=== PATIENT | male | born 1950 | race Caucasian/White ===

== ENCOUNTER 2018-07-19 11:47 | Inpatient (IN) | payer OTHER ==
[~2018-07-19] VITALS: Ht 172.7 cm; Wt 76.1 kg
[~2018-07-19 11:47] MED LIST: ? B/P MED; ALBUTEROL; ALBUTEROL2.5 MG/31 INH; ALEVE220 MG PO; AMARYL2 MG PO; ANORO ELLIPTA1 EACH INH; ASPIR 8181 MG PO; ATENOLOL 25 MG25 M1 PO; ATORVASTATIN CA40 MG PO; AUGMENTIN 875-1 EACH PO; CARVEDILOL12.5 MG PO; COD LIVER OIL1 EAC4 PO; COLACE100 MG PO; COREG6.25 MG PO; COZAAR 25 MG TA25 M2 PO; GLUCOPHAGE XR750 MG PO; GLUCOSAMINE HC500 MG PO; HYDROCODONE-AP1 EA11 PO; HYDROCODONE-AP1 EAC6 PO; HYZAAR 50-12.51 TAB; IBUPROFEN; IBUPROFEN 600600 M1 PO; LOSARTAN; LOSARTAN-HCTZ1 EAC1 PO; MECLIZINE HCL12.5 MG PO; METFORMIN; METFORMIN HYDR100 GM PO; METHOTREXATE PO; NITROGLYCERIN0.4 MG SUBLING; NITROSTAT0.4 M1 SL; ORTHO TOP; OXYGEN INH; PERCOCET 5-3251 EACH PO; PLAVIX 75 MG TA75 M1 PO; POTASSIUM PO; PREDNISONE 10 M10 MG PO; PREDNISONE 5 MG5 M1 PO; PROAIR HFA8.5 GM; RELAFEN750 MG PO; SPIRIVA INH; SYMBICORT160 MCG/4. INH; ZOFRAN4 MG PO
[2018-07-19 11:55] VITALS: BP 162/83
[2018-07-19 12:05] LABS: HEMATOCRIT 39.3 % (42.0-52.0); HEMOGLOBIN 12.6 gm/dL (14.0-18.0); MCH 28.7 pg (26.0-34.0); MCV 89.7 fL (80.0-100.0); MPV 6.8 fl. (7.2-11.1); NUCLEATED RBCS 0 /100WBC; PLATELET COUNT* 277 thou/uL (150-400); RBC 4.39 mil/uL (4.50-6.00); RDW-CV 16.4 % (10.5-14.5); WBC 9.4 thou/uL (4.0-11.0)
[2018-07-19 12:13] LABS: ANION GAP 8 mmol/L (7-16); APTT 28.7 Seconds (25.0-31.3); BUN 20 mg/dL (7-18); CHLORIDE 104 mmol/L (98-107); CO2 27 mmol/L (21-32); CREATININE 1.2 mg/dL (0.6-1.3); GLUCOSE 215 mg/dL (70-99); POTASSIUM 4.8 mmol/L (3.5-5.1); PROTIME 10.4 Seconds (9.20-11.50); SODIUM 139 mmol/L (136-145)
[2018-07-19 12:23] LABS: ALBUMIN 2.9 g/dL (3.4-5.0); ALKALINE PHOSPHATASE 66 U/L (46-116); LIPASE 236 U/L (73-393); NT-PRO BRAIN NAT PEPTIDE 1929 pg/mL (<300); SGOT 34 U/L (15-37); SGPT 46 U/L (30-65); TOTAL BILIRUBIN 0.3 mg/dL (<0.1-1.0); TOTAL PROTEIN 7.4 g/dL (6.4-8.2); TROPONIN-I LEVEL <0.06 ng/mL (<0.06)
[2018-07-19 12:30] LABS: MAGNESIUM 0.9 mg/dL (1.8-2.4)
[2018-07-19 12:38] LABS: BE -0.1 mmol/L (-2 to +3); HCO3 26.5 mmol/L (22.0-26.0); PO2 108.1 mmHg (75.0-100.0); pH 7.332 (7.340-7.450)
[2018-07-19 12:41] LABS: PCO2 51.1 mmHg (35.0-45.0)
[2018-07-19 12:57] LABS: ABSOLUTE EOSINOPHILS 0.8 thou/uL (0.0-0.7); ABSOLUTE LYMPHOCYTES 1.3 thou/uL (0.8-5.3); ABSOLUTE MONOCYTES 0.1 thou/uL (0.0-1.2); ABSOLUTE NEUTROPHILS 7.2 thou/uL (1.6-8.1); PLATELET ESTIMATE ADEQUATE
[2018-07-19 12:58] LABS: ANISOCYTOSIS 1+; POIKILOCYTOSIS 1+
[2018-07-19 14:37] VITALS: BP 140/83
--- NOTE | 2018-07-19 17:37 | 2DMMODE ---
[place] [address] 2 D/M-MODE ECHOCARDIOGRAM Name: DEYA WOOD Room: [address] IN [facility]#: [id number] Admission: 07/19/18 Attend Phys: Galen Parikh, Discharge: Date of : 46 Date of Service: 07/19/18 1737 Report #: [id number] THIS REPORT FOR: //name// APPROVED REPORT Study performed: 07/19/2018 15:43:51 EXAM: Comprehensive 2D, Doppler, and color-flow Echocardiogram Patient Location: In-Patient Room #: [facility] Status: routine BSA: 1.92 HR: 98 bpm BP: 140/83 mmHg Rhythm: NSR Other Information Study Quality: Fair Indications Dyspnea 2D Dimensions IVSd: 10.10 (7-11mm) LVOT Diam: 19.91 (18-24mm) LVDd: 57.02 mm PWd: 8.74 (7-11mm) Ascending Ao: 32.30 (22-36mm) LVDs: 44.88 (25-40mm) Aortic Root: 30.77 mm Volumes Left Atrial Volume (Systole) LA ESV Index: 23.00 mL/m2 Aortic Valve AoV Peak Casey.: 1.44 m/s AO Peak Gr.: 8.25 mmHg LVOT Max P.55 mmHg AO Mean Gr.: 4.48 mmHg LVOT Mean P.42 mmHg LVOT Max V: 1.07 m/s AO V2 VTI: 23.37 cm LVOT Mean V: 0.72 m/s SHALOM (VTI): 2.65 cm2 LVOT V1 VTI: 19.90 cm Mitral Valve E/A Ratio: 0.72 MV Decel. Time: 138.00 ms MV E Max Casey.: 1.01 m/[place] [address] 2 D/M-MODE ECHOCARDIOGRAM Name: DEYA WOOD Room: [address] IN .R.#: [id number] Admission: 07/19/18 Attend Phys: Galen Parikh, Discharge: Date of : 46 Date of Service: 07/19/18 1737 Report #: [id number] MV PHT: 40.02 ms MVA (PHT): 5.50 cm2 TDI E/Lateral E': 10.10 E/Medial E': 12.63 Medial E' Casey.: 0.08 m/s Lateral E' Casey.: 0.10 m/s Pulmonary Valve PV Peak Csaey.: 0.94 m/s PV Peak Gr.: 3.54 mmHg Tricuspid Valve RAP Estimate: 5.00 mmHg TR Peak Gr.: 33.47 mmHg RVSP: 38.00 mmHg PA Pressure: 38.00 mmHg Left Ventricle The left ventricle is normal size. Regional wall motion abnormalities are noted. akinesis noted of the mid and distal anteroapical wall and septum There is normal left ventricular wall thickness. Left ventricular systolic function is mild to moderately decreased. LVEF is 30-35%. Grade I - abnormal relaxation pattern. Right Ventricle The right ventricle is normal size. The right ventricular systolic function is normal. Atria The left atrium size is normal. The right atrium size is normal. Aortic Valve The aortic valve is normal in structure. No aortic regurgitation is present. There is no aortic valvular stenosis. Mitral Valve The mitral valve is normal in structure. There is no mitral valve regurgitation noted. No evidence of mitral valve stenosis. Tricuspid Valve The tricuspid valve is normal in structure. Trace tricuspid regurgitation. estimated pa pressure 40 mm hg Pulmonic Valve The pulmonary valve is normal in structure. There is no pulmonic [place] [address] 2 D/M-MODE ECHOCARDIOGRAM Name: DEYA WOOD Room: [address] IN [facility]#: [id number] Admission: 07/19/18 Attend Phys: Galen Parikh, Discharge: Date of : 46 Date of Service: 07/19/18 1737 Report #: [id number] Great Vessels The aortic root is normal in size. IVC is normal in size and collapses >50% with inspiration. Pericardium There is no pericardial effusion. <Conclusion> LVEF is 30-35%. Regional wall motion abnormalities are noted. akinesis noted of the mid and distal anteroapical wall and septum <ELECTRONICALLY SIGNED> By: Maninder Sanchez MD, FACC 07/19/18 [phone] Maninder Sanchez MD, FACC /INF
--- NOTE | 2018-07-19 17:58 | EKG ---
[place] [address] ELECTROCARDIOGRAM REPORT Name: DEYA WOOD Room: [address] ADM IN .R.#: [id number] Admission: 07/19/18 Attend Phys: Galen Parikh MD Discharge: Date of : 46 Report #: [id number] THIS REPORT FOR: //name// 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1950 Requested By: Trent Fishman Order Number: [id number] MD: Maninder Sanchez Measurements Intervals [place] Rate: 125 P: 68 VA: 152 QRS: -74 QRSD: 100 T: 79 QT: 287 QTc: 414 Interpretive Statements Sinus tachycardia Ventricular trigeminy old inferior infarction poor r wave progression Baseline wander in lead(s) I,II,III,aVR,aVL,aVF,V1,V2,V3,V4,V5,V6 Compared to ECG 03/21/2017 07:29:43 Ventricular premature complex(es) now present Sinus rhythm no longer present Myocardial infarct finding still present Electronically Signed On 07-19-2018 17:58:11 CDT by Maninder Sanchez [email or web address] <ELECTRONICALLY SIGNED> By: Maninder Sanchez MD, [facility] 07/19/18 1758 1153 [id number] Maninder Sanchez MD, [facility] /EPI
--- NOTE | 2018-07-19 17:59 | EKG ---
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1950 Requested By: Trent Fishman Order Number: [id number] MD: Maninder Sanchez Measurements Intervals [place] Rate: 98 P: 53 IA: 153 QRS: -67 QRSD: 96 T: 61 QT: 325 QTc: 415 Interpretive Statements Sinus rhythm Abnormal R-wave progression, early transition Inferior infarct, old Consider anterior infarct Electronically Signed On 07-19-2018 17:59:07 CDT by Maninder Sanchez [email or web address] <ELECTRONICALLY SIGNED> By: Maninder Sanchez MD, [facility] 07/19/18 1759 1300 1300 Manidner Sanchez MD, FACC /EPI
[2018-07-19 19:55] VITALS: BP 160/75
[2018-07-20] VITALS: BP 131/65
[2018-07-20 04:00] VITALS: BP 119/73
[2018-07-20 05:36] LABS: ABSOLUTE LYMPHOCYTES 0.6 thou/uL (0.8-5.3); ABSOLUTE MONOCYTES 0.1 thou/uL (0.0-1.2); ABSOLUTE NEUTROPHILS 9.1 thou/uL (1.6-8.1); BASOPHILS 0.1 %; HEMATOCRIT 30.9 % (42.0-52.0); LYMPHOCYTES 6.2 %; MCH 29.1 pg (26.0-34.0); MCHC 32.3 g/dL (28.0-37.0); MONOCYTES 1.1 %; MPV 7.3 fl. (7.2-11.1); NUCLEATED RBCS 0 /100WBC; PLATELET COUNT* 218 thou/uL (150-400); POLYS 92.6 %; RBC 3.43 mil/uL (4.50-6.00); RDW-CV 16.1 % (10.5-14.5); WBC 9.9 thou/uL (4.0-11.0)
[2018-07-20 06:01] LABS: ANION GAP 5 mmol/L (7-16); BUN 26 mg/dL (7-18); CHLORIDE 107 mmol/L (98-107); CO2 27 mmol/L (21-32); CREATININE 1.3 mg/dL (0.6-1.3); GLUCOSE 208 mg/dL (70-99); NT-PRO BRAIN NAT PEPTIDE 4421 pg/mL (<300); POTASSIUM 5.6 mmol/L (3.5-5.1); SODIUM 139 mmol/L (136-145); TROPONIN-I LEVEL <0.06 ng/mL (<0.06)
[2018-07-20 08:00] VITALS: BP 132/76
[2018-07-20 13:01] VITALS: BP 131/74
[2018-07-20 16:45] VITALS: BP 132/77
[2018-07-20 20:10] VITALS: BP 138/75
[2018-07-21] VITALS: BP 120/72
[2018-07-21 04:00] VITALS: BP 122/71
[2018-07-21 08:00] VITALS: BP 138/79; BP 146/78
[2018-07-21 11:19] VITALS: BP 122/75
[2018-07-21 11:28] LABS: ABSOLUTE LYMPHOCYTES 0.5 thou/uL (0.8-5.3); ABSOLUTE MONOCYTES 0.2 thou/uL (0.0-1.2); ABSOLUTE NEUTROPHILS 13.8 thou/uL (1.6-8.1); BASOPHILS 0.2 %; HEMATOCRIT 32.6 % (42.0-52.0); HEMOGLOBIN 10.7 gm/dL (14.0-18.0); LYMPHOCYTES 3.2 %; MCH 29.2 pg (26.0-34.0); MCHC 32.7 g/dL (28.0-37.0); MCV 89.3 fL (80.0-100.0); MONOCYTES 1.5 %; MPV 7.1 fl. (7.2-11.1); NUCLEATED RBCS 0 /100WBC; PLATELET COUNT* 256 thou/uL (150-400); POLYS 95.1 %; RBC 3.65 mil/uL (4.50-6.00); RDW-CV 16.5 % (10.5-14.5); WBC 14.5 thou/uL (4.0-11.0)
[2018-07-21 12:07] LABS: ALBUMIN 2.5 g/dL (3.4-5.0); CREATININE 1.1 mg/dL (0.6-1.3); POTASSIUM 5.2 mmol/L (3.5-5.1); TOTAL BILIRUBIN 0.3 mg/dL (<0.1-1.0); TOTAL PROTEIN 6.5 g/dL (6.4-8.2)
[2018-07-21 14:00] VITALS: BP 144/86
--- NOTE | 2018-07-26 09:11 | CON ---
[address] [address] CONSULTATION Name: DEYA WOOD Room: [address] IN .R.#: [id number] Admission: 07/19/18 Attend Phys: Galen Parikh MD Discharge: 07/21/18 Date of : 46 Report #: [id number] THIS REPORT FOR: //name// CC: Galen Euceda DATE OF SERVICE: 07/19/2018 REQUESTING PHYSICIAN: Galen Parikh MD. PRIMARY CARE PHYSICIAN: Faiza Euceda DO. CHIEF COMPLAINT: Shortness of breath. HISTORY OF PRESENT ILLNESS: The patient is a 67-year-old male with a history of both oxygen requiring COPD and congestive heart failure with mild LV dysfunction. He presented to the hospital Emergency Room today with increasing shortness of breath over the last few days. He was getting ready to go to work. He took a breathing treatment as he felt more short of breath than usual even on his 2 liters of oxygen which he chronically uses. His symptoms did not improve. He went to the Emergency Room. His ECG showed a sinus rhythm with conduction delay, but no acute ST segment abnormalities. He is ruled out for an acute UT. His troponin is normal. We were asked to see him because he does have a history of coronary artery disease, congestive heart failure and his BNP was elevated at 4421. Yesterday, it was 1929. He has been receiving IV fluids, though. PAST MEDICAL HISTORY: He has a history of coronary disease. Dr. Sanchez put a drug-eluting stent in his right coronary artery. He has an ejection fraction of 45% on an echo this year. This was 03/2018. He has oxygen-requiring COPD, hypertension, diabetes mellitus, mild obesity, hyperlipidemia, hypertension, Parkinson's disease, chronic low back pain, remote CVA. PAST SURGICAL HISTORY: Hip surgery 2017, foot surgery. FAMILY HISTORY: Positive for heart attack maternally. HOME MEDICATIONS: Include albuterol/Atrovent. He takes prednisone 5 mg daily for rheumatoid arthritis. He is on atorvastatin 40 mg daily, Pulmicort, Symbicort, carvedilol 6.25 mg p.o. b.i.d., glimepiride 2 mg, guaifenesin, insulin glargine, losartan/HCTZ 100/25 mg daily. REVIEW OF SYSTEMS: GASTROINTESTINAL: No hematemesis or melena. GENITOURINARY: No dysuria or hematuria. CARDIOVASCULAR: Positive dyspnea. No orthopnea, no PND. [place] [address] CONSULTATION Name: DEYA WOOD Room: [address]#: [id number] Admission: 07/19/18 Attend Phys: Galen Parikh MD Discharge: 07/21/18 Date of : 46 Report #: [id number] exertion. No chest pain. HEMATOLOGIC: No anemia or bleeding disorders. RENAL: No history of kidney failure. ENDOCRINE: Positive diabetes, positive hyperlipidemia. SKIN: No rashes. PULMONARY: Positive shortness of breath. Positive cough. He is followed by Dr. Cornejo for his COPD. PHYSICAL EXAMINATION: VITAL SIGNS: Blood pressure is 132/77, pulse is 88, sinus rhythm, temperature 36.4. GENERAL: This is a pleasant elderly male. He is dyspneic with heavier conversation. HEENT: Eyes: EOMs intact. No facial asymmetry. NECK: Supple. No jugular venous distention. CARDIOVASCULAR: Regular. I cannot hear a murmur or S3. LUNGS: Clear to auscultation. There are no rales. ABDOMEN: Nontender. EXTREMITIES: No peripheral edema. LABORATORY DATA: Electrocardiogram demonstrates a sinus rhythm with poor R-wave progression across the anterior precordial leads and inferior Q waves, heart rate of 98. There were no ST segment abnormalities, though. LABORATORY DATA: Troponin I is 0.06 x 2 sets. Hemoglobin is 10.0, white blood count is 9.9. Chest x-ray shows no acute process. CTA demonstrated no evidence of pulmonary embolus. No aneurysm, extensive emphysematous changes throughout both lungs. No infiltrates or effusion. No masses. BNP is 1929 and 4421 today. IMPRESSION: 1. Acute dyspnea. Etiology of this may be related to his chronic lung disease. His x-ray does not reveal infiltrates. There is a slight elevation of his BNP. I suspect he has a chronic elevation of this lab level where he has been receiving IV fluids overnight, which I would discontinue. 2. Acute chronic obstructive pulmonary disease exacerbation. He will likely require steroid therapy. I will defer this to our hospital colleagues. 3. Ischemic cardiomyopathy. He has a history of prior inferior myocardial infarction. His echocardiogram revealed an EF in the 35% range, down from previous echocardiogram. There is a distal wall motion abnormality, which is concerning. I would evaluate him with an outpatient nuclear stress test after he recovers from his chronic obstructive pulmonary disease exacerbation as I do not think he can lay flat at this time for a good perfusion study. Alternatively, he could have a heart catheterization as a potential diagnostic [address] [address] CONSULTATION Name: ISRAELDEYA Room: [address] IN .R.#: [id number] Admission: 07/19/18 Attend Phys: Galen Parikh MD Discharge: 07/21/18 Date of : 46 Report #: [id number] Sanchez's request, but I would proceed noninvasively at a later date. I would continue with his Coreg and ARB therapy. <ELECTRONICALLY SIGNED> By: Cristi Elizondo MD, FACC 07/26/18 0911 1655 [id number] Perez MD, FACC /nt
== END 2018-07-21 17:05 | disposition left against medical advice (07) | DRG 291 ==
LOC: M.ERS 11:47 → M.2W 12:32 → M.TBA-ER 12:32 → M.2W 15:12
PROVIDERS: Family Medicine; ADMIT Internal Medicine
DX: I11.0 Hypertensive heart disease with heart failure (principal); J96.01 Acute respiratory failure with hypoxia; R65.11 Systemic inflammatory response syndrome (SIRS) of non-infectious origin with acute organ dysfunction; J44.1 Chronic obstructive pulmonary disease with (acute) exacerbation; Z53.21 Procedure and treatment not carried out due to patient leaving prior to being seen by health care provider; I50.43 Acute on chronic combined systolic (congestive) and diastolic (congestive) heart failure; M06.9 Rheumatoid arthritis, unspecified; E11.9 Type 2 diabetes mellitus without complications; I25.10 Atherosclerotic heart disease of native coronary artery without angina pectoris; E66.9 Obesity, unspecified; E78.5 Hyperlipidemia, unspecified; G89.29 Other chronic pain; M54.5 Low back pain; G20 Parkinson's disease; I25.5 Ischemic cardiomyopathy; Z53.29 Procedure and treatment not carried out because of patient's decision for other reasons; R00.0 Tachycardia, unspecified; Z99.81 Dependence on supplemental oxygen; I25.2 Old myocardial infarction; Z79.899 Other long term (current) drug therapy; Z79.82 Long term (current) use of aspirin; Z95.5 Presence of coronary angioplasty implant and graft; Z68.25 Body mass index [BMI] 25.0-25.9, adult; Z86.73 Personal history of transient ischemic attack (TIA), and cerebral infarction without residual deficits; Z82.49 Family history of ischemic heart disease and other diseases of the circulatory system; Z87.891 Personal history of nicotine dependence; Z95.1 Presence of aortocoronary bypass graft